=== PATIENT | female | born 1955 | race Caucasian/White ===

== ENCOUNTER 2020-05-02 18:57 | Emergency (ER) | payer OTHER ==
[~2020-05-02] VITALS: Ht 162.6 cm; Wt 88.5 kg
[~2020-05-02 18:57] MED LIST: CELEXA40 MG PO; FLEXERIL PO; LIPITOR 20 MG T20 M1 PO; MULTIPLE VITAMIN; NAPROSYN500 MG PO; NORCO 5-325 TA1 EACH PO
[2020-05-02 20:52] VITALS: BP 151/85
== END 2020-05-02 20:54 | disposition left against medical advice (07) ==
LOC: M.ERS 18:57
DX: Z53.21 Procedure and treatment not carried out due to patient leaving prior to being seen by health care provider (principal)